=== PATIENT | male | born 1985 | race Hispanic/Latino ===

== ENCOUNTER 2019-11-08 19:20 | Emergency (ER) | payer SELFPAY | END 2019-11-08 20:30 | disposition home or self-care (01) | LOC: EDH 19:20 | DX: S62.306A Unspecified fracture of fifth metacarpal bone, right hand, initial encounter for closed fracture (principal); W11.XXXA Fall on and from ladder, initial encounter; Y93.89 Activity, other specified; Y92.89 Other specified places as the place of occurrence of the external cause; Y99.8 Other external cause status | CPT/HCPCS: 29125 ==

== ENCOUNTER 2020-06-30 02:15 | Emergency (ER) | payer OTHER ==
[2020-06-30] MEDS ORDERED: LIDOCAINE HCL 2% JELLY 5 ML ONE (02:52)
== END 2020-06-30 04:13 | disposition home or self-care (01) ==
LOC: EDH 02:15
DX: K64.8 Other hemorrhoids (principal)